=== PATIENT | female | born 1985 | race Caucasian/White ===

== ENCOUNTER 2019-12-17 20:00 | Inpatient (IN) | payer OTHER ==
[2019-12-17 21:20] LABS: EOS % 1.9 % (0-4.5); HEMATOCRIT 33.3 % (32.4-45.2); HEMOGLOBIN 11.1 GM/dL (10.7-15.3); LYMPH % 32.6 % (8-40); MCH 30.9 pg (25.7-33.7); MCHC 33.4 g/dl (32.0-36.0); MEAN CELL VOLUME 92.6 fl (80-96); MEAN PLT VOLUME 10.2 fl (7.5-11.1); MONO % 5.6 % (3.8-10.2); NEUT % 57.9 % (42.8-82.8); PLATELET COUNT 260 K/MM3 (134-434); RBC 3.59 M/mm3 (3.60-5.2); RDW 14.6 % (11.6-15.6); WHITE BLOOD COUNT 6.9 K/mm3 (4.0-10.0)
[2019-12-17] MEDS ORDERED: BUTORPHANOL TARTRATE 1 MG/ML VIAL IVPB ONE (21:29)
[2019-12-17] MEDS ORDERED: PROMETHAZINE HCL 25 MG/1 ML VIAL IVPUSH ONE (21:29)
[2019-12-17] MEDS ORDERED: DEXTROSE 5%-LACTATED RINGERS 1,000 ML IV SCH (21:30)
--- NOTE | 2019-12-17 21:39 | HP ---
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 Weeks Gestation by Dates: 41 ...EDC by Dates: 12/10/19 Infectious Disease: Yes: Other (hpv pos). No: AIDS, C-Diff, Herpes Zoster, HIV, MRSA, STD's, Tuberculosis, VREF Psych: No: Addictions, Anxiety, Bipolar, Depression, Panic, Psychosis, Schizophrenia, Other - Past Surgical History Past Surgical History: Yes: None Hx Myomectomy: No Hx Transabdominal Cerclage: No - Smoking History Smoking history: Never smoked Have you smoked in the past 12 months: No - Alcohol/Substance Use Hx Alcohol Use: No History of Substance Use: reports: None Home Medications - Allergies Allergies/Adverse Reactions: Allergies Allergy/AdvReac Type Severity Reaction Status Date / Time No Known Allergies Allergy Verified 10/23/14 07:59 - Home Medications Home Medications: Ambulatory Orders Mv-Mn/Iron/FA/Herbal/Digestive [ One Tablet] 1 each PO DAILY 10/19/14 Acetaminophen [Tylenol .Regular Strength -] 650 mg PO Q4H PRN #0 tablet 10/25/14 Ibuprofen [Motrin -] 600 mg PO Q4H PRN #0 tablet 10/25/14 Review of Systems - Review of Systems Constitutional: reports: No Symptoms Eyes: reports: No Symptoms HENT: reports: No Symptoms Neck: reports: No Symptoms Cardiovascular: reports: No Symptoms Respiratory: reports: No Symptoms Gastrointestinal: reports: No Symptoms Genitourinary: reports: No Symptoms Breasts: reports: No Symptoms Reported Musculoskeletal: reports: No Symptoms Integumentary: reports: No Symptoms Neurological: reports: No Symptoms Endocrine: reports: No Symptoms Hematology/Lymphatic: reports: No Symptoms Psychiatric: reports: No Symptoms Pain Intensity: 5 Physical Exam - Maternity Vital Signs: Selected Entries 12/17/19 20:30 Temperature 98.2 F Pulse Rate 78 Blood Pressure 115/68 Weight 153 lb Constitutional: Yes: Well Nourished, Mild Distress Eyes: Yes: WNL HENT: Yes: WNL, Normocephalic Neck: Yes: WNL Cardiovascular: Yes: WNL, Regular Rate and Rhythm Lungs: Clear to auscultation Breast(s): Yes: WNL - Abdominal Exam/OB Fundal Height: 40 Number of Fetuses: Single Presentation: Vertex Contractions: Yes Regularity: Irregular (6-7 min) Intensity: Mild/Mod Monitor Mode: External Heart Rate (range): 130 Heart Rate Location: [facility] Category: I Accelerations: Uniform Decelerations: None - Vaginal Exam/OB Vaginal Bleeding: No Dilatation (cm): 4 Effacement (%): 70 Amniotic Membrane Status: Intact Presentation: Vertex/Position Station: -3 - Physical Exam Musculoskeletal: Yes: WNL Extremities: Yes: WNL. No: Calf Tenderness Edema: LLE: 1+, RLE: 1+ Integumentary: Yes: WNL Deep Tendon Reflex Grade: Normal +2 ...Motor Strength: WNL Psychiatric: Yes: WNL, Alert, Oriented - Labs Lab Results: Laboratory Tests 12/17/19 12/17/19 12/17/19 21:00 21:00 21:00 WBC 6.9 Hgb 11.1 Hct 33.3 D Plt Count 260 D PT with INR 10.30 INR 0.87 PTT (Actin FS) 23.2 L Sodium 139 Potassium 4.1 Chloride 108 H Carbon Dioxide 18 L BUN 10.5 Creatinine 0.6 Random Glucose 134 H Calcium 8.6 Syphilis Serology Blood Type Antibody Screen 12/17/19 12/17/19 21:00 21:00 WBC Hgb Hct Plt Count PT with INR INR PTT (Actin FS) Sodium Potassium Chloride Carbon Dioxide BUN Creatinine Random Glucose Calcium Syphilis Serology Non-reactive Blood Type O POSITIVE Antibody Screen Negative Problem List - Problems (1) Post term at 41 weeks gestation Code(s): O48.0 - POST-TERM ; Z3A.41 - 41 WEEKS GESTATION OF (2) Labor established Code(s): WCQ8721 - Assessment/Plan 34 yrs , 41 wks IUO in early labor plan anticipate vag del stadol+phenrgan for labor analgesia prn
[2019-12-17 21:44] LABS: BLOOD UREA NITROGEN 10.5 mg/dL (7-18); CALCIUM 8.6 mg/dL (8.5-10.1); CREATININE 0.6 mg/dL (0.55-1.3); POTASSIUM 4.1 mmol/L (3.5-5.1)
[2019-12-17 21:58] LABS: INR 0.87 (0.83-1.09); PROTHROMBIN TIME (PATIENT) 10.3 SEC (9.7-13.0)
[2019-12-17 22:00] LABS: ACTIVATED PTT 23.2 SECONDS (25.2-36.5)
[2019-12-17 22:27] VITALS: BMI 30.9
[2019-12-17] MEDS ORDERED: OXYTOCIN 30 UNITS in 0.9% NS 30 UNIT/500 ML INFUS.BAG IVPB SCH (22:30)
[2019-12-17 22:59] LABS: ANISOCYTOSIS 0; MACROCYTOSIS 0; PLATELET ESTIMATE NORMAL
[2019-12-17] MEDS ORDERED: OXYTOCIN 30 UNITS in 0.9% NS 30 UNIT/500 ML INFUS.BAG IVPB ONE (23:04)
[2019-12-18] MEDS ORDERED: BUTORPHANOL TARTRATE 2 MG/ML VIAL ONE (01:29)
[2019-12-18] MEDS ORDERED: PROMETHAZINE HCL 25 MG/1 ML VIAL ONE (01:30)
[2019-12-18] MEDS ORDERED: OXYTOCIN 20 UNITS in 0.9% NS 20 UNIT/1,000 ML INFUS.BAG IV ONE ×2 (03:48→09:13)
[2019-12-18] MEDS ORDERED: LIDOCAINE HCL 1% PRESERVATIVE FREE - 30ML VIAL ONE (04:15)
--- NOTE | 2019-12-18 04:51 | PN ---
Progress Note (short form) - Note Progress Note: 12..00 midnight pitocin augmentation was started 1.35 AM stadol 2mg + phenrgan 25 mg iv stat given 3.05 AM Cx 6-7/80/0 AROM clear ,scanty fluid FhR 130-110, variable decel -Cat -2 . uc 2-4 min , 3.45AM 10cm/100%/+2 fhr 130-70 cat-2 , uc 1-2 min pt pushing Selected Entries 12/17/19 23:00 Temperature 97.9 F Pulse Rate 70 Blood Pressure 118/68 Problem List - Problems (1) Post term at 41 weeks gestation Code(s): O48.0 - POST-TERM ; Z3A.41 - 41 WEEKS GESTATION OF (2) Labor established Code(s): [id number] -
--- NOTE | 2019-12-18 04:57 | PN ---
Delivery - Delivery Vaginal Delivery: No Problems, Spontaneous (pt delievered baby in Vx presentation, fiordaliza position , cord around neck, x1 untangled before delivery of shoulders. Shoulders delievered without difficulty . cord gas & ccord blood collected, placenta removed completely with membranes, 2nd degree laceration sutured in layers with chr catgut #2/o under local anesthesia . pr ex mucosa & sphincter intact) Type of Anesthesia: Local Episiotomy/Laceration: Midline, 2nd degree Delivery, Single - Stages of Labor Date 1st Stage Initiatied: 12/17/19 Time 1st Stage Initiated: 09:00 Date 2nd Stage Initiated: 12/18/19 Time 2nd Stage Initiated: 03:45 Date of Delivery: 12/18/19 Time of Delivery: 04:10 Date Placenta Delivered: 12/25/19 Time Placenta Delivered: 04:15 Placenta: Yes: Spontaneous - Condition of Gender: Female Weight: 7 lb 2 oz Position: Left, OA Total Hours ROM (Hrs/Mins): [id number] - 1 Minute Total Score: 99 5 Minutes Total Score: 9 - Feeding Plan Initial Plan: Elected not to breastfeed exclusively throughout hospitalization Remarks - Remarks Remarks: 34 yrs , 41 weeks gestation admitted in labor . gbs neg pnc at [address] [place] [address] 2 mg stadol + 25 phenrgan was given for labor analgesia . Intrapartum course uneventful
[2019-12-18] MEDS ORDERED: WITCH HAZEL 50% (TUCKS) 40 PAD/JAR PAD TP PRN (05:04)
[2019-12-18] MEDS ORDERED: BENZOCAINE 28 GM HEMORRHOIDAL OINTMENT TP PRN (05:04)
[2019-12-18] MEDS ORDERED: BENZOCAINE 20% 57 GM BOTTLE TP PRN (05:04)
[2019-12-18] MEDS ORDERED: METHYLERGONOVINE MALEATE 0.2 MG/1 ML AMP IM PRN (05:04)
[2019-12-18] MEDS ORDERED: BISACODYL 10 MG SUPP.RECT RC PRN (05:04)
[2019-12-18] MEDS ORDERED: OXYTOCIN 20 UNITS in 0.9% NS 20 UNIT/1,000 ML INFUS.BAG IV SCH (05:15)
[2019-12-18] MEDS: FERROUS SO4 325 MG TABLET (FP) PO SCH ×2 (08:13→18:07)
[2019-12-18 09:37] LABS: CORD BASE EXCESS -10.4 mmol/L (0-2); CORD HCO3 18.1 mmHg (20-29); CORD PCO2 49.1 mmHg (30-78); CORD pH 7.185 (7.14-7.44)
[2019-12-18] MEDS: PRENATAL VITAMINS W/ FOLIC ACID TABLET (FP) PO SCH (10:00)
[2019-12-18] MEDS ORDERED: IBUPROFEN 600 MG TABLET (FP) PO ONE (11:29)
[2019-12-18] MEDS ORDERED: ACETAMINOPHEN 325 MG TABLET (FP) ONE (11:29)
[2019-12-18] MEDS: ACETAMINOPHEN 325 MG TABLET (FP) PO PRN ×2 (11:30→21:25)
[2019-12-18] MEDS: IBUPROFEN 600 MG TABLET (FP) PO PRN ×2 (11:30→21:24)
--- NOTE | 2019-12-19 07:04 | DS ---
Physical Examination Vital Signs: Vital Signs Temperature 97.9 F 12/19/19 06:54 Pulse Rate 67 12/19/19 06:54 Respiratory Rate 20 12/19/19 06:54 Blood Pressure 119/72 12/19/19 06:54 O2 Sat by Pulse Oximetry (%) 100 12/18/19 14:55 Findings/Remarks: ambulating, tolerating PO, lochia decreased, breast and bottle feeding. PP precautions discussed. Constitutional: Yes: No Distress HENT: Yes: Atraumatic Neck: Yes: Supple Respiratory: Yes: Regular Gastrointestinal: Yes: Soft ...Rectal Exam: Yes: Other Renal/: Yes: Other Musculoskeletal: Yes: Other Extremities: Yes: WNL Edema: Yes Edema: LLE: Trace, RLE: Trace Integumentary: Yes: WNL Wound/Incision: Yes: Well Approximated Neurological: Yes: Alert, Oriented ...Motor Strength: WNL Psychiatric: Yes: Alert, Oriented Labs: CBC, BMP 12/17/19 21:00 12/17/19 21:00 Discharge Summary Problems reviewed: Yes Reason For Visit: LABOR Current Active Problems Labor established (Acute) Normal spontaneous vaginal delivery (Acute) Post term at 41 weeks gestation (Acute) Procedures: Principal: vaginal delivery Hospital Course: uncomplicated course Plan of Treatment: follow up in 3-4 weeks at health center Condition: Stable - Instructions Diet, Activity, Other Instructions: Post Instructions DIET: Continue good diet high in protein, calcium, and iron rich foods. Drink at least eight (8) glasses of water daily in addition to other fluids. ct Regular diet MEDICATIONS: Continue vitamins and iron as previously directed. Motrin and Tylenol may be taken for minor discomfort. ACTIVITY: Mild to moderate exercise may be started in two (2) weeks. Take frequent rest periods. Resume normal activity after six (6) week check up. WOUND CARE OF OPERATIVE SITE: Continue use of perineal bottle until vaginal discharge stops. Keep area clean. Shower daily. Keep abdominal wound dry. Report any drainage or redness to physician. Tub baths, tampons and douches are not permitted for 6 weeks. _ct Breast feeding & or Bottle feeding BREAST CARE: (For those that are not breast feeding): If engorgement occurs: Wear tight fitting bra. Take Tylenol or Motrin for pain. Apply cold packs (ice in bags to each breast ) FAMILY PLANNING: There are many control alternatives to pursue and they should be discussed at your first office visit. You may resume sexual activity after your six (6) week check up. (Remember, breast feeding is not a contraceptive) NEXT PHYSICIAN APPOINTMENT: Be certain to call for a three (3 ) week appointment, unless otherwise directed. Call Clinic or got to Emergency Dept if you have any of the following: Heavy vaginal bleeding Painful urination Leg pain Unusual odor noted to vaginal bleeding High fever Red streaking noted on breast Referrals: Joelle Mckeon MD [Staff Physician] - Disposition: HOME - Home Medications Comprehensive Discharge Medication List: Ambulatory Orders Mv-Mn/Iron/FA/Herbal/Digestive [ One Tablet] 1 each PO DAILY 10/19/14 Acetaminophen [Tylenol .Regular Strength -] 650 mg PO Q4H PRN #0 tablet 10/25/14 Ibuprofen [Motrin -] 600 mg PO Q4H PRN #0 tablet 10/25/14 Acetaminophen [Tylenol .Regular Strength -] 650 mg PO Q3H PRN tablet 12/18/19 Benzocaine [Americaine 20% [place] -] 1 spray TP PRN PRN bottle 12/18/19 Ferrous Sulfate [Feosol] 325 mg PO BIDWM #60 tab 12/18/19 Ibuprofen [Motrin -] 600 mg PO Q4H PRN #20 tablet 12/18/19 Vitamins (Sjr) - 1 tab PO DAILY #30 tablet 12/18/19 Witch Romelia 50% (Tucks) [Tucks Pads -] 1 pad TP PRN PRN pad 12/18/19
[2019-12-19 07:52] LABS: BASO % 0.7 % (0-2.0); HEMOGLOBIN 10.6 GM/dL (10.7-15.3); PLATELET COUNT 227 K/MM3 (134-434); WHITE BLOOD COUNT 8.4 K/mm3 (4.0-10.0)
[2019-12-19 07:59] LABS: HEMATOCRIT 32.1 % (32.4-45.2); LYMPH % 38.2 % (8-40); MCH 30.2 pg (25.7-33.7); MCHC 32.9 g/dl (32.0-36.0); MEAN CELL VOLUME 91.9 fl (80-96); MEAN PLT VOLUME 9.2 fl (7.5-11.1); MONO % 4.9 % (3.8-10.2); NEUT % 53.2 % (42.8-82.8); RBC 3.49 M/mm3 (3.60-5.2); RDW 14.5 % (11.6-15.6)
[2019-12-19] MEDS: PRENATAL VITAMINS W/ FOLIC ACID TABLET (FP) PO SCH (09:11)
[2019-12-19] MEDS: FERROUS SO4 325 MG TABLET (FP) PO SCH (09:11)
[2019-12-19 13:03] VITALS: BP 108/71; PULSE 85; TEMP 98
[2019-12-19] MEDS ORDERED: SENNOSIDES/DOCUSATE COMBO (SENNA PLUS) TABLET (UD) PO PRN (22:00)
== END 2019-12-19 14:05 | disposition home or self-care (01) | DRG 560 ==
LOC: JLDR 20:00 → J3W 12-18 14:17
PROVIDERS: ADMIT Obstetrics & Gynecology; ATTEND Obstetrics & Gynecology
PROC: 0KQM0ZZ Repair Perineum Muscle, Open Approach (ICD-10-PCS; principal; 2019-12-18)
PROC: 10E0XZZ Delivery of Products of Conception, External Approach (ICD-10-PCS; 2019-12-18)
DX: O48.0 Post-term pregnancy (principal); O69.81X0 Labor and delivery complicated by cord around neck, without compression, not applicable or unspecified; O70.1 Second degree perineal laceration during delivery; Z3A.41 41 weeks gestation of pregnancy; Z37.0 Single live birth
CPT/HCPCS: 36415; 36600; 59409; 80048; 82803; 85025; 85610; 85730; 86780; 86850; 86900; 86901; U0003